=== PATIENT | male | born 1990 | race Caucasian/White ===

== ENCOUNTER 2023-12-23 23:23 | Observation (INO) | payer OTHER ==
[2023-12-24] MEDS ORDERED: ACETAMINOPHEN 500 MG TABLET (FP) ONE (01:37)
[2023-12-24] MEDS ORDERED: KETOROLAC TROMETHAMINE 30 MG/1 ML VIAL ONE (01:37)
[2023-12-24] MEDS ORDERED: METHOCARBAMOL 500 MG TABLET ONE (01:37)
[2023-12-24] MEDS ORDERED: LIDOCAINE 4% PATCH TP ONE (01:38)
[2023-12-24] MEDS: METHOCARBAMOL 500 MG TABLET PO ONE (01:45)
[2023-12-24] MEDS: KETOROLAC TROMETHAMINE 30 MG/1 ML VIAL IM ONE (01:45)
[2023-12-24] MEDS: ACETAMINOPHEN 500 MG TABLET (FP) PO ONE (01:45)
[2023-12-24] MEDS: LIDOCAINE 5% TOPICAL PATCH TP ONE (01:45)
[2023-12-24] MEDS: GABAPENTIN 100 MG CAPSULE PO SCH (11:17)
[2023-12-24] MEDS: methylPREDNISolone 8 MG TABLET PO SCH (11:18)
[2023-12-24 11:32] LABS: BASO % 0.5 % (0-2.0); EOS % 1.6 % (0-4.5); HEMATOCRIT 46.2 % (35.4-49); HEMOGLOBIN 15.4 GM/dL (11.7-16.9); LYMPH % 27.4 % (8-40); MCHC 33.3 g/dl (32.0-35.9); MEAN CELL VOLUME 90.1 fl (80-96); MEAN PLT VOLUME 9.1 fl (7.5-11.1); MONO % 8.7 % (3.8-10.2); NEUT % 61.8 % (42.8-82.8); PLATELET COUNT 266 10^3/uL (134-434); RBC 5.13 M/mm3 (4.00-5.60); RDW 13.4 % (11.9-15.9); WHITE BLOOD COUNT 7.8 K/mm3 (4.0-10.0)
[2023-12-24 11:38] LABS: INR 1.08 (0.83-1.09); PROTHROMBIN TIME (PATIENT) 12.4 SEC (9.7-13.0)
[2023-12-24 11:41] LABS: ACTIVATED PTT 36.6 SECONDS (25.2-36.5)
[2023-12-24 11:50] LABS: POTASSIUM 4.4 mmol/L (3.5-5.1)
[2023-12-24 11:52] LABS: ALBUMIN 4.6 g/dl (3.4-5.0); CALCIUM 9.8 mg/dL (8.5-10.1)
[2023-12-24 11:53] LABS: BLOOD UREA NITROGEN 18.3 mg/dL (7-18)
[2023-12-24 11:56] LABS: CREATININE 0.8 mg/dL (0.55-1.3)
[2023-12-24 11:58] LABS: TOT PROT 8.2 g/dl (6.4-8.2)
[2023-12-24] MEDS ORDERED: MORPHINE SULFATE 2 MG/ML SYRINGE ONE (17:51)
[2023-12-24] MEDS: morphine CARPU-JECT 2 MG/1 ML DISP.SYRIN IVPUSH ONE (17:56)
[2023-12-24] MEDS: MORPHINE SULFATE 2 MG/ML SYRINGE IVPUSH ONE (18:31)
[2023-12-24 19:04] VITALS: RESP 20
[2023-12-24] MEDS ORDERED: LIDOCAINE PATCH REMOVAL MC SCH (22:00)
[2023-12-24] MEDS: IBUPROFEN 600 MG TABLET (FP) PO PRN (23:36)
[2023-12-25 01:34] VITALS: BP 140/78; PULSE 67; TEMP 97.5; BMI 31.6
[2023-12-25] MEDS ORDERED: LIDOCAINE 5% TOPICAL PATCH TP SCH (10:00)
== END 2023-12-25 01:00 | disposition left against medical advice (07) ==
LOC: JER 23:23 → JERBED 12-24 10:31 → J8W 12-24 21:48
PROVIDERS: ADMIT Internal Medicine; ATTEND Internal Medicine
PROC: 3E033NZ Introduction of Analgesics, Hypnotics, Sedatives into Peripheral Vein, Percutaneous Approach (ICD-10-PCS; principal; 2023-12-24)
DX: M51.25 Other intervertebral disc displacement, thoracolumbar region (principal); M54.9 Dorsalgia, unspecified
CPT/HCPCS: 36415; 72148-TC; 80053; 85025; 85610; 85730; 86850; 86900; 86901; 96374; 99285-25; G0378